=== PATIENT | male | born 1940 | race Caucasian/White ===

== ENCOUNTER → 2018-09-03 | Day surgery (SDC) | payer MEDICARE ==
[~2018-09-03] MED LIST: BENICAR20 MG PO; FENTANYL CITRATE/PF 100MCG/2 ML INJ ONE; FISH OIL 1,0001 EAC2 PO; HYDROCHLOROTHIA25 MG PO; LIDOCAINE HCL 2% LOCAL INJ 5 ML SDV VIAL INJ ONE; LIPITOR80 MG PO; LOSARTAN POTAS100 MG PO; MIDAZOLAM HCL 2 MG/2 ML VIAL ONE; MULTIVITAMIN PO; PANTOPRAZOLE SO40 MG PO; PLAVIX75 MG PO; PROPOFOL IV EMULSION 10 MG/ML 50 ML VIAL ONE; TAMSULOSIN HCL0.4 MG PO
--- OUTSIDE RECORDS SUMMARY | 2018-09-03 10:17 | XMS REPORT | Clinical Summary ---
Author Author [facility] Address Unknown Phone Unavailable Care Team Providers Care Search Engine Optimization Specialist Name Role Phone Pcp, No PCP Unavailable Allergies Not on File Medications Not on file Active Problems Not on file Social History Date Tobacco Use Types Packs/Day Years Used Never Assessed Sex Assigned at Date Recorded Not on file Industry Job Start Date Occupation Not on file Not on file Not on file Travel End Travel History Travel Start No recent travel history available. Last Filed Vital Signs Not on file Plan of Treatment Not on file Results Not on fileafter 09/02/2017 Insurance Payer Benefit Subscriber ID Type Phone Address Plan / Group MCR SUPPLEMENT/INDIVIDUAL AARP/UNITE xxxxxxxxxxx Medigap D HEALTHCARE MEDICARE MEDICARE A xxxxxxxxxx Medicare B
[2018-09-03 13:30] VITALS: BP 121/70
--- NOTE | 2018-09-03 14:26 | Operative Report ---
DATE OF PROCEDURE: September 03, 2018 REFERRING PHYSICIAN: Buster Santo MD PROCEDURE PERFORMED: Esophagogastroduodenoscopy with esophageal dilatation and biopsies. INDICATIONS FOR EGD: Dysphagia. MEDICATION: Patient was done under MAC. Please see anesthesiologist's note. PROCEDURE: With the patient in the left lateral decubitus position, the flexible fiberoptic Olympus gastroscope was introduced into the esophagus under direct visualization without any difficulty. There was some mild stricture noted at the GE junction that was dilated to a size 54-Azeri Cortes. The scope was then advanced with ease into the stomach. The mucosa overlying the antrum revealed some diffuse erythema and mild to moderate edema, and biopsies were obtained and sent to stain for H. pylori. Mucosa overlying the body revealed some patchy atrophic changes, and biopsies were obtained. Pylorus appeared to be of normal contour and shape. It was intubated with ease. The scope was advanced all the way to the 2nd portion of the duodenum. The scope was then withdrawn slowly. Mucosa overlying the proximal 2nd portion and the duodenal bulb appeared to be within normal limits. The scope was then withdrawn back into the stomach and retroflexed. Mucosa overlying the fundus as well as the cardia appeared to be within normal limits. The scope was then straightened out. It was subsequently withdrawn. Patient tolerated the procedure well. IMPRESSION 1. 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 2. Gastritis, antrum, biopsied. Biopsies sent to stain for H. pylori. 3. Rule out atrophic gastritis, body. PLAN: Follow up histology. Continue Protonix 40 mg 1 p.o. q.a.m. a.c. Job#: [id number] cc:BUSTER SANTO MD
== END | disposition home or self-care (01) ==
LOC: OR 09:47
PROVIDERS: ATTEND Internal Medicine Gastroenterology
DX: K22.2 Esophageal obstruction (principal); K29.50 Unspecified chronic gastritis without bleeding; R13.10 Dysphagia, unspecified; Z79.01 Long term (current) use of anticoagulants; Z95.5 Presence of coronary angioplasty implant and graft; I10 Essential (primary) hypertension; Z88.5 Allergy status to narcotic agent; Z01.810 Encounter for preprocedural cardiovascular examination
CPT/HCPCS: 43239; 43249; 88305; 88312; 93005; J2001; J2250; 43450